=== PATIENT | male | born 1940 | race Hispanic/Latino ===

== ENCOUNTER 2016-12-22 11:03 | Emergency (ER) | payer MEDICARE ==
[2016-12-22 11:56] LABS: ALT (SGPT) 10 U/L (0-55); AST (SGOT) 10 U/L (5-34); Alkaline Phosphatase 72 U/L (40-150); Anion Gap 16 mmol/L (10-20); BUN (Urea Nitrogen) 23 mg/dL (8.4-25.7); Bilirubin, Total 0.5 mg/dL (0.2-1.2); Calc. Creatinine Clearance 0 mL/min (70-130); Calcium 9.2 mg/dL (7.8-10.44); Carbon Dioxide 21 mmol/L (23-31); Chloride 99 mmol/L (98-107); Estimated GFR-MDRD 45; Globulin 2.8 g/dL (2.4-3.5); Glucose 136 mg/dL (83-110); Lipase 16 U/L (8-78); Potassium 3.9 mmol/L (3.5-5.1); Protein, Total 6.8 g/dL (5.8-8.1); Sodium 132 mmol/L (136-145)
[2016-12-22 11:57] LABS: Troponin I 0.041 ng/mL (< 0.028)
[2016-12-22 12:42] LABS: Bilirubin Negative (Negative); Blood, Urine Trace (Negative); Clarity Clear (Clear); Glucose, Urine (Dipstick) Negative (Negative); Leukocyte Negative (Negative); Nitrite Negative (Negative); Protein, Urine (Dipstick) 100 mg/dL (Neg-Trace); Specific Gravity, Urine 1.025 (1.005-1.030); Urobilinogen 0.2 mg/dL (0.2-1.0)
[2016-12-22 12:49] LABS: Bacteria/HPF None Seen HPF (None Seen); Crystals/HPF None Seen HPF (Negative); Hyaline Casts/LPF NONE SEEN LPF (0-3 Hyaline); Oval Fat Bodies/HPF None Seen HPF (None Seen); RBC/HPF 0-3 HPF (0-3); Renal Epithelial None Seen HPF (0-3); Sperm/HPF None Seen HPF (None Seen); Squamous Epithelial None Seen HPF (0-3); Transitional Epithelial NONE SEEN HPF (0-3); Trichomonas/HPF None Seen HPF (None Seen); WBC/HPF None Seen HPF (0-3); Yeast-All Forms None Seen HPF (None Seen)
[2016-12-22] MEDS ORDERED: Lisinopril 5 MG TAB ONE (13:06)
[2016-12-22] MEDS ORDERED: Pantoprazole 40 MG VIAL ONE (13:11)
[2016-12-22 14:19] LABS: Troponin I 0.026 ng/mL (< 0.028)
--- NOTE | 2016-12-22 20:59 | RAD ---
CHEST TWO VIEWS 12/22/16 PA and lateral views are compared with a 01/12/14 study. The heart is normal in size. There is no con gestive change or pleural effusion. No major lobar infiltrate was seen. While the CT scan showed some bronchial thickening in the left l ower lobe, this is not confirmable on these plain radiographs. Attention is drawn to the right upper lobe. There is an extremely vague density seen where ribs are overlapping the right scapula. I cannot tell if the shadow is due to the overlap of bones, or if the re might be other pathology here. One might give consideration for an elective CT to remove all doub ts. The mediastinum was unremarkable. IMPRESSION: 1. No acute infiltrative process seen. See comments on CT of abdomen report, however. That repo rts notes a tiny left lower lobe nodule and bronchial thickening. 2. Equivocal density in the right upper lobe at the junction of the rib and scapula. It might b e best to consider an elective CT of the chest to be sure there is no pathology here. I do not see a nything in this location on the 01/12/14 comparison chest x-ray. Code T POS: HOME
--- NOTE | 2016-12-22 21:46 | CT ---
PRELIMINARY REPORT/[facility]/EMERGENCY AFTER HOURS PROCEDURE: EXAM: CT Abdomen and Pelvis Without Intravenous Contrast CLINICAL HISTORY: 76 years old, male; Pain; Abdominal pain; Periumbilical; Patient HX: HX right inguinal hernia SX TECHNIQUE: Axial computed tomography images of the abdomen and pelvis without intravenous contrast. Coronal reformatted images were created and reviewed. EXAM DATE/TIME: 12/22/2016 12:09 PM COMPARISON: No relevant prior studies available. FINDINGS: Lower thorax: There is an 8mm nodule in the posterior left costophrenic angle. There is a wall thick ening in the left lower lobe. ABDOMEN: Liver: Unremarkable. Gallbladder and bile ducts: The gallbladder is distended but otherwise unremarkable. No calcified st ones. No ductal dilation. Pancreas: Unremarkable. No ductal dilation. Spleen: Unremarkable. No splenomegaly. Adrenals: Unremarkable. No mass. Kidneys and ureters: Unremarkable. No obstructing stones. No hydronephrosis. Stomach and bowel: There is thickening of the wall of the distal stomach and proximal duodenum. There are a few mildly prominent loops of small intestine in the left flank. The intestine is otherw ise unremarkable. There is a 3 cm left lateral bladder diverticulum. The urinary bladder is otherwis e unremarkable. Appendix: The appendix is identified and normal in caliber. No periappendiceal inflammatory changes. PELVIS: Bladder: Unremarkable. No stones. Reproductive: Unremarkable as visualized. ABDOMEN and PELVIS: Intraperitoneal space: Unremarkable. No free air. No significant fluid collection. Bones/joints: No acute fracture. No dislocation. Soft tissues: Unremarkable. Vasculature: Unremarkable. No abdominal aortic aneurysm. Lymph nodes: Unremarkable. No enlarged lymph nodes. IMPRESSION: 1. Changes in the left lower lung as described. Bronchial wall thickening may represent acute or chr onic bronchitis. 2. Small nodule in the left costophrenic angle. In low-risk patients (minimal or absent history of s moking or other known risk factors), recommend initial CT at 6-12 months. If stable, repeat CT at 18 -24 months. For high-risk patients (history of smoking or other known risk factors), recommend initi al CT at 3-6 months. If stable, repeat CT at 9-12 months and at 24 months. 3. Mild nonspecific small bowel ileus. 4. No other acute changes in the abdomen or pelvis. Thank you for allowing us to participate in the care of your patient. Dictated and Authenticated by: Osvaldo Cardenas MD 12/22/2016 12:50 PM Central Time ([place] \T\ Michael) FINAL REPORT CT ABDOMEN AND PELVIS WITHOUT CONTRAST 12/22/[address] of the abdomen and pelvis was done without oral or IV contrast. The patient's renal functi on studies were borderline leading to the decision to not use IV contrast. Axial slices were acquire d, then coronal reconstructions were done. There is thickening of the bronchial benites in the lower lobes, but particularly the left lower lobe. There is slight dilation of the smaller bronchial passes in the area. Bronchitis and/or bronchiecta sis are considerations. There is a small nodular density in the left costophrenic angle posteriorly that is approximately 8 mm or so in size. It should be followed up in 6 to 12 months if this is a lo w risk patient and 3 to 6 months if a high risk patient. The liver, spleen, and adrenal glands were unremarkable within the limitations of a noncontrast stud y. The gallbladder is somewhat large and distended, being 9.5 cm in length. No wall thickening or st ones were seen. The pancreas contain no obvious mass. The main pancreatic duct seemed a little more prominent in size than usual (about 5 mm in diameter) but no gross obstructive lesion was seen to ac count for it. The kidneys showed no mass or hydronephrosis. The aorta showed no aneurysm. There was no distention of bowel, though some of the loops of small bowel in the left flank are flui d filled but not really thickened. This is a nonspecific finding. There was a small amount of thicke aaron of the distal stomach and proximal duodenum that could be inflammatory in nature. The appendix appears normal. CT of the pelvis shows a 3 cm diverticulum off the left side of the urinary bladder. No pelvic ahsan s, inflammatory changes or free fluid was seen. IMPRESSION: 1. Findings suggestive of bronchitis and/or bronchiectasis in the lower lobes, particularly the left lower lobe. 2. Small nodular density in the left costophrenic angle. CT followup recommended per above. 3. Enlargement of the gallbladder. Borderline size of pancreatic duct. If there is suspicion of gallbladder disease, then a HIDA scan could be useful in assessing function. 4. Nonspecific small bowel findings. Report in agreement with preliminary reading by Sesar. POS: HOME
== END 2016-12-22 14:53 | disposition home or self-care (01) ==
LOC: BURERS 11:03
DX: K29.00 Acute gastritis without bleeding (principal); I10 Essential (primary) hypertension; F17.210 Nicotine dependence, cigarettes, uncomplicated; Z79.899 Other long term (current) drug therapy
CPT/HCPCS: 71020; 74176; 80053; 81003; 81015; 82553; 83690; 84484; 93005; 96360; 96374; C9113

== ENCOUNTER 2017-04-21 10:03 | Emergency (ER) | payer MEDICARE ==
[~2017-04-21 10:03] MED LIST: Iopamidol 370 76% 100 ML VIAL ONE
[2017-04-21 10:37] LABS: #Basophils 0.1 thou/uL (0.0-0.2); #Eosinphils 0.1 thou/uL (0.0-0.7); #Lymphocytes 1.4 thou/uL (1.20-3.40); #Monocytes 0.4 thou/uL (0.11-0.59); #Neutrophils 6.2 thou/uL (1.40-6.50); %Basophils 0.7 % (0.0-1.0); %Eosinophils 1.2 % (0.0-10.0); %Monocytes 4.7 % (0.0-10.0); %Neutrophils 76.4 % (42.0-75.0); Hemoglobin 14.7 g/dL (14.0-18.0); Mean Corpuscular Volume 94.1 fl (80.0-94.0); Mean Platelet Volume 8.2 fL (7.4-10.4); Platelet Count 181 thou/uL (130-400); RBC Distribution Width 12.5 % (11.5-14.5); White Blood Cell (WBC) Count 8.1 thou/uL (4.8-10.8)
[2017-04-21 10:43] LABS: INR-International Normal Ratio 1.1; PTT 31.5 SEC (22.9-36.1); Prothrombin Time 13.9 SEC (12.0-14.7)
[2017-04-21 10:53] LABS: ALT (SGPT) 12 U/L (8-55); AST (SGOT) 12 U/L (5-34); Albumin 4.1 g/dL (3.4-4.8); Alkaline Phosphatase 73 U/L (40-150); Anion Gap 13 mmol/L (10-20); BUN (Urea Nitrogen) 21 mg/dL (8.4-25.7); Bilirubin, Total 0.5 mg/dL (0.2-1.2); Calc. Creatinine Clearance 0 mL/min (70-130); Calcium 9.4 mg/dL (7.8-10.44); Carbon Dioxide 23 mmol/L (23-31); Chloride 106 mmol/L (98-107); Estimated GFR-MDRD 46; Globulin 2.5 g/dL (2.4-3.5); Glucose 109 mg/dL (83-110); Potassium 4.5 mmol/L (3.5-5.1); Protein, Total 6.6 g/dL (5.8-8.1); Sodium 137 mmol/L (136-145)
[2017-04-21 10:55] LABS: CKMB 0.9 ng/mL (0-6.6); Troponin I 0.043 ng/mL (< 0.028)
[2017-04-21 12:58] LABS: Troponin I 0.045 ng/mL (< 0.028)
--- NOTE | 2017-04-21 20:57 | RAD ---
CHEST TWO VIEWS: Date: 04-21-17 Comparison: 12-22-16 FINDINGS: There has been no adverse interval change. The heart size is the same. Calcification is seen in the aortic arch. The lungs are fully inflated and clear. Previously there was a question of a faint righ t upper lobe opacity, but I do not see it today. There are no effusions. IMPRESSION: No acute thoracic finding. POS: HOME
--- NOTE | 2017-04-22 05:55 | CT ---
PRELIMINARY REPORT/[facility]/EMERGENCY AFTER HOURS PROCEDURE: EXAM: CT Abdomen and Pelvis With Intravenous Contrast CLINICAL HISTORY: The patient is 76 years old and is male; generalized abdominal pain with black stool TECHNIQUE: Axial computed tomography images of the abdomen and pelvis with intravenous contrast. All CT scans a t this facility use one or more dose reduction techniques, viz.: automated exposure control; ma/kV a djustment per patient size (including targeted exams where dose is matched to indication; i.e. head) ; or iterative reconstruction technique. CONTRAST: 90 mL of iso 370 administered intravenously. COMPARISON: No relevant prior studies available. FINDINGS: Lower thorax: NORMAL. No infiltrates or nodules. No pleural effusion. ABDOMEN: Liver: 12 mm hepatic hemangioma. No neoplasm or cirrhosis. Gallbladder and bile ducts: NORMAL. No stones. No dilated or irregular ducts. Pancreas: NORMAL. No pancreatic mass or inflammation, or duct dilatation. Spleen: NORMAL. No splenomegaly. Normal parenchyma. Adrenals: NORMAL. No adrenal nodule or enlargement. Kidneys and ureters: NORMAL. No renal mass, stone or obstruction. Stomach and bowel: Normal stomach and duodenum. Thickening of the wall of the jejunum beginning at t he ligament of Treitz, which gradually dissipates distally, persisting for a few turns. Nonspecific appearance. Differential of inflammation, ischemia and neoplasm. Appendix: NORMAL. No signs of inflammation. PELVIS: Bladder: NORMAL. No bladder wall thickening or stone. Reproductive: NORMAL prostate and seminal vesicles for age. ABDOMEN and PELVIS: Intraperitoneal space: NORMAL. No free air or significant fluid collection. Retroperitoneal space: NORMAL. No mass, abnormal tissue or fluid. Bones/joints: See above. Soft tissues: NORMAL. Vasculature: NORMAL. No aneurysm, dissection or occlusion. Lymph nodes: NORMAL. No enlarged lymph nodes. IMPRESSION: Thickened proximal jejunal benites with a nonspecific appearance. Thank you for allowing us to participate in the care of your patient. Dictated and Authenticated by: Lopez Morrissey MD 04/21/2017 11:57 AM Central Time ([place] \T\ [place]) FINAL REPORT CT ABDOMEN AND PELVIS WITH CONTRAST: Date: 04-21-17 Technique: Spiral CT of the abdomen and pelvis was done for evaluation of abdominal pain and melena. Axial slices were acquired after an injection of IV contrast. No oral contrast was given. Coronal r econstructions were done afterwards. FINDINGS: There is some thickening of folds in the stomach and the proximal small bowel. The proximal small nelida wel loops are mildly dilated and fluid filled. The findings are nonspecific but more typical of an i nflammatory or infectious process. There is no evidence of overt obstruction. The colonic benites do n ot see thickened. No free air or free fluid was seen. The lung bases are clear except for some dependent atelectasis. The liver, spleen, pancreas, adrenal glands and kidneys showed no acute findings. The gallbladder was a little generous in size but cont ain no signs of stones or wall thickening. The aorta shows calcification but no aneurysm. CT of the pelvis was remarkable for an enlarged prostate. Additionally, there may be a bladder diver ticulum on the left side. IMPRESSION: 1. Nonspecific findings in the stomach through proximal small bowel that would be typical of infecti ous or inflammatory causes. No evidence of pham obstruction. 2. Possible left sided bladder diverticulum. Report in agreement with preliminary report by [facility]. POS: HOME
== END 2017-04-21 13:10 | disposition home or self-care (01) ==
LOC: BURERS 10:03
DX: R53.1 Weakness (principal); I10 Essential (primary) hypertension; F17.210 Nicotine dependence, cigarettes, uncomplicated; Z79.899 Other long term (current) drug therapy
CPT/HCPCS: 36415; 71020; 74177; 80053; 82274; 82553; 83605; 83690; 84443; 84484; 85025; 85610; 85730; 93005; 96360; A4216

== ENCOUNTER → 2017-06-18 | Emergency (ER) | payer MEDICARE ==
[~2017-06-18] MED LIST changes: -Iopamidol 370 76% 100 ML VIAL ONE; +Nitroglycerin 0.4 MG TAB (25 Tab Bottle) ONE; +Nitroglycerin 2% Ointment 1 INCH/1 GM Packet ONE; +methylPREDNISolone Sod Succ/PF 125 MG/2 ML VIAL ONE
[2017-06-18 02:59] LABS: INR-International Normal Ratio 1.2; Prothrombin Time 14.9 SEC (12.0-14.7)
[2017-06-18 03:09] LABS: ALT (SGPT) 18 U/L (8-55); AST (SGOT) 9 U/L (5-34); Albumin 3.7 g/dL (3.4-4.8); Alkaline Phosphatase 90 U/L (40-150); Anion Gap 17 mmol/L (10-20); BUN (Urea Nitrogen) 61 mg/dL (8.4-25.7); Bilirubin, Total 0.5 mg/dL (0.2-1.2); CK (CPK) 56 U/L (30-200); Calc. Creatinine Clearance 0 mL/min (70-130); Calcium 8.4 mg/dL (7.8-10.44); Carbon Dioxide 16 mmol/L (23-31); Chloride 108 mmol/L (98-107); Estimated GFR-MDRD 8; Globulin 2.7 g/dL (2.4-3.5); Glucose 151 mg/dL (83-110); Lipase 137 U/L (8-78); Potassium 4.9 mmol/L (3.5-5.1); Protein, Total 6.4 g/dL (5.8-8.1); Sodium 136 mmol/L (136-145)
[2017-06-18 03:10] LABS: CKMB 1.2 ng/mL (0-6.6)
[2017-06-18 03:11] LABS: #Basophils 0.1 thou/uL (0.0-0.2); #Eosinphils 1.7 thou/uL (0.0-0.7); #Lymphocytes 1.2 thou/uL (1.20-3.40); #Monocytes 0.6 thou/uL (0.11-0.59); #Neutrophils 7.2 thou/uL (1.40-6.50); %Basophils 0.6 % (0.0-1.0); %Eosinophils 15.8 % (0.0-10.0); %Lymphocytes 11.4 % (21.0-51.0); %Monocytes 5.4 % (0.0-10.0); %Neutrophils 66.8 % (42.0-75.0); Mean Corpuscular HGB CONC 34.2 g/dL (32.0-36.0); Mean Corpuscular Hemoglobin 31.6 pg (27.0-31.0); Mean Corpuscular Volume 92.3 fl (80.0-94.0); Mean Platelet Volume 7.4 fL (7.4-10.4); Platelet Count 153 thou/uL (130-400); RBC Distribution Width 12.5 % (11.5-14.5); Red Blood Cell (RBC) Count 3.16 mill/uL (4.70-6.10); White Blood Cell (WBC) Count 10.7 thou/uL (4.8-10.8)
[2017-06-18 03:25] LABS: D-Dimer Test 1.29 *mcg/mL (0.27-0.43)
--- NOTE | 2017-06-18 07:36 | RAD ---
PORTABLE CHEST: DATE: 06/18/17. FINDINGS: An AP portable film at 1433 is compared with an 04/21/17 study. In the interval, pulmonary edema and slight vascular congestion has occurred. The cardiac size may be marginally larger than before. Th ere are no large effusions. No lobar consolidations were seen. IMPRESSION: Interval appearance of pulmonary edema, presumably of a cardiac origin given the presentation with c hest pain. POS: HOME
== END ==
LOC: BURERS 02:29
DX: J98.01 Acute bronchospasm (principal); R07.2 Precordial pain; K29.60 Other gastritis without bleeding; A04.8 Other specified bacterial intestinal infections; N17.9 Acute kidney failure, unspecified; R79.89 Other specified abnormal findings of blood chemistry
CPT/HCPCS: 51702; 71010; 80053; 82550; 82553; 83690; 83880; 84484; 85025; 85379; 85610; 85730; 93005; 94640; 94760; 96361; 96374; J2930; J7620

== ENCOUNTER 2017-08-09 18:02 | Emergency (ER) | payer MEDICARE ==
[2017-08-09] MEDS ORDERED: Fentanyl 100 MCG/2 ML VIAL ONE (18:25)
[2017-08-09 18:59] LABS: ALT (SGPT) 8 U/L (8-55); AST (SGOT) 8 U/L (5-34); Alkaline Phosphatase 74 U/L (40-150); Anion Gap 17 mmol/L (10-20); BUN (Urea Nitrogen) 34 mg/dL (8.4-25.7); Bilirubin, Total 0.5 mg/dL (0.2-1.2); Calc. Creatinine Clearance 0 mL/min (70-130); Calcium 9.8 mg/dL (7.8-10.44); Carbon Dioxide 23 mmol/L (23-31); Chloride 101 mmol/L (98-107); Estimated GFR-MDRD 22; Globulin 3.2 g/dL (2.4-3.5); Glucose 132 mg/dL (83-110); Lipase 15 U/L (8-78); Potassium 4.6 mmol/L (3.5-5.1); Protein, Total 7.2 g/dL (5.8-8.1); Sodium 136 mmol/L (136-145)
[2017-08-09 19:00] LABS: Hemoglobin 9.1 g/dL (14.0-18.0); Lymphocytes 8 % (21-51); MDiff Complete? YES; Mean Corpuscular HGB CONC 31.8 g/dL (32.0-36.0); Mean Corpuscular Hemoglobin 29.6 pg (27.0-31.0); Mean Corpuscular Volume 93.2 fl (80.0-94.0); Monocytes 6 % (0-10); Neutrophil 84 % (42-75); Platelet Count 210 thou/uL (130-400); RBC Distribution Width 12.8 % (11.5-14.5); Reactive Lymphocytes 1 % (0-10); Red Blood Cell (RBC) Count 3.07 mill/uL (4.70-6.10); White Blood Cell (WBC) Count 11.6 thou/uL (4.8-10.8)
--- NOTE | 2017-08-09 19:25 | CT ---
CT ABDOMEN AND PELVIS NONCONTRAST 08/09/17 HISTORY: Bilateral flank pain. COMPARISON: 04/21/17. FINDINGS: Each renal collecting system and ureter are decompressed without stone evident. The diverticulum proj ecting to the left side of the urinary bladder now measures up to 4.3 cm greatest AP diameter. No sto tobias are apparent. Lack of contrast limits evaluation for other abnormalities. Small hiatal hernia is apparent. No evide nce of bowel obstruction. Dystrophic calcification within the mid abdomen amongst the bowel loops is stable. There is calcification in the arterial structures. The rectum is dilated with fecal material up to 7.8 cm greatest diameter. For the degree of distentio n, there is some thickening of the rectal wall and subtle stranding in the adjacent fat. IMPRESSION: 1. No CT evidence of urinary tract obstruction or calcification. 2. Fecal impaction with thickening of the rectal wall. Clinical correlation regarding other sign s and symptoms of stercoral proctitis is required. POS: GANGA
[2017-08-09] MEDS ORDERED: Magnesium Citrate 300 ML BOT ONE (19:49)
== END 2017-08-09 20:30 | disposition home or self-care (01) ==
LOC: BURERS 18:02
DX: K59.00 Constipation, unspecified (principal); I10 Essential (primary) hypertension; F17.210 Nicotine dependence, cigarettes, uncomplicated; Z79.899 Other long term (current) drug therapy; Z79.82 Long term (current) use of aspirin
CPT/HCPCS: 74176; 80053; 83690; 85025; 96374; J3010

== ENCOUNTER 2018-02-05 08:36 | Outpatient (CLI) | payer MEDICARE ==
--- NOTE | 2018-02-05 17:21 | ULT ---
LEFT BREAST ULTRASOUND: 02/05/2018 TECHNIQUE: Ultrasonography of the left breast was performed around an area of interest in the areolar region. A few comparison views of the right side, in the same area, were obtained as well. FINDINGS: There is an ill-defined, hypoechoic area in the left retroareolar region, measuring 1.7 x 1 x 1.8 cm. Its margins are not well defined. While it could just be some hypertrophied tissue from gynecomast ia, the current appearance does not allow me to ensure it is not a mass. Because of this, I feel fur ther workup to be certain is needed. The comparison views of this same region of the right breast sh ow no abnormality and nothing similar. IMPRESSION: A 1.8 cm, irregular, hypoechoic area in the left retroareolar region with indeterminate margins. See discussion above. While this could end up being some benign hypertrophied tissue, I do not feel the ultrasound appearance is specific enough to ensure that. Thus, I feel further workup of this lesion would be prudent and in the patient's best interest. CODE T POS: GANGA
== END 2018-02-05 08:37 | disposition home or self-care (01) ==
LOC: BURULT 08:36
PROVIDERS: ATTEND Family Medicine
DX: N63.20 Unspecified lump in the left breast, unspecified quadrant (principal)

== ENCOUNTER 2018-07-19 10:44 | Outpatient (CLI) | payer MEDICARE ==
[2018-07-19 16:21] LABS: Hemoglobin 12.5 g/dL (14.0-18.0)
[2018-07-19 16:35] LABS: Anion Gap 11 mmol/L (10-20); BUN (Urea Nitrogen) 23 mg/dL (8.4-25.7); Calc. Creatinine Clearance 0 mL/min (70-130); Calcium 9.3 mg/dL (7.8-10.44); Carbon Dioxide 27 mmol/L (23-31); Chloride 106 mmol/L (98-107); Estimated GFR-MDRD 27; Glucose 90 mg/dL (83-110); Potassium 3.7 mmol/L (3.5-5.1); Sodium 140 mmol/L (136-145)
== END 2018-07-19 10:45 | disposition home or self-care (01) ==
LOC: BURLAB 10:44
PROVIDERS: ATTEND Internal Medicine Nephrology
DX: I13.10 Hypertensive heart and chronic kidney disease without heart failure, with stage 1 through stage 4 chronic kidney disease, or unspecified chronic kidney disease (principal); N18.4 Chronic kidney disease, stage 4 (severe); E55.9 Vitamin D deficiency, unspecified; E87.2 Acidosis; R60.0 Localized edema
CPT/HCPCS: 36415; 80048; 85014; 85018

== ENCOUNTER 2019-08-23 08:15 | Emergency (ER) | payer MEDICARE ==
[2019-08-23 08:40] LABS: #Eosinphils 0.1 thou/uL (0.0-0.7); #Lymphocytes 0.7 thou/uL (1.20-3.40); #Monocytes 0.1 thou/uL (0.11-0.59); %Basophils 0.4 % (0.0-1.0); %Lymphocytes 10.6 % (21.0-51.0); %Monocytes 1.4 % (0.0-10.0); %Neutrophils 86.5 % (42.0-75.0); Hemoglobin 15.3 g/dL (14.0-18.0); Mean Corpuscular Hemoglobin 29.4 pg (27.0-31.0); Mean Corpuscular Volume 94.8 fL (78.0-98.0); Mean Platelet Volume 6.3 fL (7.4-10.4); Platelet Count 224 thou/uL (130-400); RBC Distribution Width 13.6 % (11.5-14.5); Red Blood Cell (RBC) Count 5.22 mill/uL (4.70-6.10); White Blood Cell (WBC) Count 6.9 thou/uL (4.8-10.8)
[2019-08-23 08:57] LABS: ALT (SGPT) 10 U/L (8-55); AST (SGOT) 10 U/L (5-34); Albumin 4.7 g/dL (3.4-4.8); Alkaline Phosphatase 67 U/L (40-110); Anion Gap 18 mmol/L (10-20); BUN (Urea Nitrogen) 18 mg/dL (8.4-25.7); Bilirubin, Total 0.7 mg/dL (0.2-1.2); Calc. Creatinine Clearance 0 mL/min (70-130); Calcium 9.8 mg/dL (7.8-10.44); Carbon Dioxide 24 mmol/L (23-31); Chloride 104 mmol/L (98-107); Estimated GFR-MDRD 30; Globulin 2.9 g/dL (2.4-3.5); Glucose 148 mg/dL (83-110); Potassium 3.8 mmol/L (3.5-5.1); Protein, Total 7.6 g/dL (5.8-8.1); Sodium 142 mmol/L (136-145)
[2019-08-23 09:14] LABS: CKMB 1.1 ng/mL (0-6.6)
--- NOTE | 2019-08-23 10:10 | CT ---
CT Chest WO Con HISTORY: Dyspnea. COMPARISON: 02/27/2019 CT examination. FINDINGS: There are pneumonic appearing infiltrates in the right upper lobe predominantly involving t he posterior segment and right lower lobe pneumonic infiltrate. The left lung is clear. No significant mediastinal adenopathy appreciated on this noncontrast study. There are some moderate coronary calcification seen. 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 It appears stable as compared to the previous exam. Visualized liver parenchyma is normal. Right and left adrenal glands are normal. IMPRESSION: Right upper and lower lobe pneumonic infiltrates.
[2019-08-23] MEDS ORDERED: Cefepime 1 GM VIAL ONE (10:36)
[2019-08-23] MEDS ORDERED: Sodium Chloride 0.9% 100 ML ONE (10:37)
[2019-08-23] MEDS ORDERED: Sodium Bicarb 50 MEQ/50 ML Abboject 8.4% SYRINGE ONE (10:55)
--- NOTE | 2019-08-23 12:13 | RAD ---
PORTABLE CHEST: Date: 08/23/19 An AP portable film at 0833 hours shows a dense consolidation mainly in the right lower lobe. There i s probably some infiltrate in the right upper lobe as well. The left lung is clear. The heart is uppe r normal in size, but there is no congestive change or pleural effusion. IMPRESSION: Right-sided pneumonia. POS: HOME
== END 2019-08-23 11:10 | disposition short-term general hospital (02) ==
LOC: BURERS 08:15
DX: J18.9 Pneumonia, unspecified organism (principal); I10 Essential (primary) hypertension; F17.210 Nicotine dependence, cigarettes, uncomplicated; Z79.899 Other long term (current) drug therapy; Z79.82 Long term (current) use of aspirin
CPT/HCPCS: 36415; 71045; 71250; 80053; 82553; 83605; 83880; 84484; 85025; 85379; 87040; 93005; 94640; 94760; 96365; 96375; J0692; J3370; J3490; J7620

== ENCOUNTER 2019-09-01 17:30 | Emergency (ER) | payer MEDICARE ==
[2019-09-01 17:57] LABS: #Eosinphils 0.3 thou/uL (0.0-0.7); #Lymphocytes 0.9 thou/uL (1.20-3.40); #Monocytes 0.4 thou/uL (0.11-0.59); #Neutrophils 6.7 thou/uL (1.40-6.50); %Basophils 0.5 % (0.0-1.0); %Eosinophils 3.5 % (0.0-10.0); %Monocytes 4.4 % (0.0-10.0); %Neutrophils 80.6 % (42.0-75.0); Hemoglobin 13.6 g/dL (14.0-18.0); Mean Corpuscular HGB CONC 32.1 g/dL (32.0-36.0); Mean Corpuscular Hemoglobin 29.5 pg (27.0-31.0); Mean Platelet Volume 6.2 fL (7.4-10.4); Platelet Count 256 thou/uL (130-400); RBC Distribution Width 13.5 % (11.5-14.5); Red Blood Cell (RBC) Count 4.59 mill/uL (4.70-6.10); White Blood Cell (WBC) Count 8.4 thou/uL (4.8-10.8)
[2019-09-01 18:05] LABS: Base Excess-Venous -0.3 mmol/L (-2.0 to 3.0); Bicarbonate (HCO3v) 24.5 mmol/L (22.0-28.0); CO2 Tension (PvCO2) 39.7 mmHg (40.0-50.0); Calcium, Ionized 1.18 mmol/L (See Comments:); Chloride 102 mmol/L (98-107); Hemoglobin - Calc 14.9 g/dL (14.0-18.0); Potassium 3.6 mmol/L (3.5-5.1); Sodium 138 mmol/L (138-145); T. Carbon Dioxide 25.7 mmol/L (22.0-28.0); vO2 Saturation-calc 88.6 % (60.0-85.0)
[2019-09-01 18:06] LABS: ALT (SGPT) 10 U/L (8-55); AST (SGOT) 9 U/L (5-34); Albumin 4.4 g/dL (3.4-4.8); Alkaline Phosphatase 63 U/L (40-110); Anion Gap 15 mmol/L (10-20); BUN (Urea Nitrogen) 19 mg/dL (8.4-25.7); Bilirubin, Total 0.8 mg/dL (0.2-1.2); Calc. Creatinine Clearance 0 mL/min (70-130); Calcium 9.7 mg/dL (7.8-10.44); Carbon Dioxide 23 mmol/L (23-31); Chloride 105 mmol/L (98-107); Estimated GFR-MDRD 30; Globulin 2.9 g/dL (2.4-3.5); Glucose 109 mg/dL (83-110); Potassium 3.8 mmol/L (3.5-5.1); Protein, Total 7.3 g/dL (5.8-8.1); Sodium 139 mmol/L (136-145)
--- NOTE | 2019-09-01 18:23 | RAD ---
PORTABLE CHEST ONE VIEW: 09/01/19 at 5:44 p.m. HISTORY: Dyspnea. FINDINGS: Comparison made with exam of 08/23/19. The heart size is normal. The lungs are expanded without focal areas of consolidation, pneumothoraces , or pleural effusions. The consolidation in the right lower lung has resolved in the interim. IMPRESSION: No radiographic evidence of acute cardiopulmonary process. Interval resolution of right sided pneumon ia since 08/23/19. POS: JERRELLA
[2019-09-01] MEDS ORDERED: methylPREDNISolone Sod Succ/PF 125 MG/2 ML VIAL ONE (18:28)
== END 2019-09-01 19:14 | disposition home or self-care (01) ==
LOC: BURERS 17:30
DX: J44.1 Chronic obstructive pulmonary disease with (acute) exacerbation (principal); E78.5 Hyperlipidemia, unspecified; I11.0 Hypertensive heart disease with heart failure; I50.9 Heart failure, unspecified; F17.210 Nicotine dependence, cigarettes, uncomplicated
CPT/HCPCS: 71045; 80053; 82330; 82803; 83880; 84484; 85025; 87804; 93005; 96374; J2930; J7620

== ENCOUNTER 2020-05-07 11:35 | Outpatient (CLI) | payer MEDICARE ==
--- NOTE | 2020-05-09 07:15 | CT ---
CT THORAX NONCONTRAST: DATE: 05/07/2020 HISTORY: 79-year-old male follow-up pulmonary nodules COMPARISON: 02/27/2019 FINDINGS: A few tiny less than 3 mm pulmonary micronodules mentioned on prior report. By Fleischner's criteria, these do not require follow-up. There are no suspicious pulmonary nodules. The right-sided infiltrates of 08/23/2019 have resolved. Currently, there is a small focal pulmonary scar at the poste rior base of the right lower lobe, probably sequela from that larger infiltrate. Otherwise, lungs are clear. No pleural effusion or pneumothorax. Fluid-filled dilated esophagus is again noted. Moderate hiatal hernia again noted. No cardiomegaly or pericardial effusion. The previously described 2 cm saccular aneurysm protruding from posterior surface of the descending t horacic aorta is again noted. Calcification of coronary arteries. IMPRESSION: 1) no suspicious pulmonary nodules. 2) right lower lobe focal pulmonary scar represents sequela of the right lower lobe pneumonia that wa s demonstrated on 08/23/2019. 3) moderate size hiatal hernia 4) fluid-filled diffusely dilated esophagus. 5) saccular aneurysm of descending thoracic aorta.
== END 2020-05-07 11:36 | disposition home or self-care (01) ==
LOC: BURCT 11:35
PROVIDERS: ATTEND Family Medicine
DX: R91.1 Solitary pulmonary nodule (principal); K44.9 Diaphragmatic hernia without obstruction or gangrene; J98.4 Other disorders of lung; I71.2 Thoracic aortic aneurysm, without rupture
CPT/HCPCS: 71250

== ENCOUNTER 2021-07-03 11:59 | Outpatient (CLI) | payer MEDICARE ==
[2021-07-03 12:16] LABS: Hemoglobin 13.3 g/dL (14.0-18.0); Mean Corpuscular HGB CONC 32.7 g/dL (32.0-36.0); Mean Corpuscular Hemoglobin 31.4 pg (27.0-31.0); Mean Platelet Volume 6.7 fL (7.4-10.4); Platelet Count 219 thou/uL (130-400); RBC Distribution Width 13.2 % (11.5-14.5); Red Blood Cell (RBC) Count 4.23 mill/uL (4.70-6.10); White Blood Cell (WBC) Count 6.1 thou/uL (4.8-10.8)
[2021-07-03 12:57] LABS: Albumin 3.8 g/dL (3.4-4.8); Anion Gap 14 mmol/L (10-20); BUN (Urea Nitrogen) 22 mg/dL (8.4-25.7); Calc. Creatinine Clearance 0 mL/min (70-130); Calcium 9.5 mg/dL (7.8-10.44); Carbon Dioxide 24 mmol/L (23-31); Chloride 107 mmol/L (98-107); Glucose 104 mg/dL (83-110); Magnesium 2.1 mg/dL (1.6-2.6); Potassium 3.7 mmol/L (3.5-5.1); Sodium 141 mmol/L (136-145)
[2021-07-03 18:45] LABS: Phosphorus 2.9 mg/dL (2.3-4.7)
== END 2021-07-03 12:00 | disposition home or self-care (01) ==
LOC: BURLAB 11:59
PROVIDERS: ATTEND Internal Medicine Nephrology
DX: I13.10 Hypertensive heart and chronic kidney disease without heart failure, with stage 1 through stage 4 chronic kidney disease, or unspecified chronic kidney disease (principal); N18.4 Chronic kidney disease, stage 4 (severe); R60.9 Edema, unspecified
CPT/HCPCS: 36415; 80048; 82040; 83735; 83970; 84100; 85027

== ENCOUNTER 2021-11-04 14:43 | Outpatient (CLI) | payer MEDICARE ==
[2021-11-04 15:12] LABS: #Eosinphils 0.3 thou/uL (0.0-0.7); #Lymphocytes 0.9 thou/uL (1.20-3.40); #Monocytes 0.4 thou/uL (0.11-0.59); #Neutrophils 2.9 thou/uL (1.40-6.50); %Basophils 1.1 % (0.0-1.0); %Eosinophils 6.1 % (0.0-10.0); %Lymphocytes 20.1 % (21.0-51.0); %Monocytes 7.7 % (0.0-10.0); Hemoglobin 12.3 g/dL (14.0-18.0); Mean Corpuscular HGB CONC 32.9 g/dL (32.0-36.0); Mean Platelet Volume 6.4 fL (7.4-10.4); Platelet Count 206 thou/uL (130-400); RBC Distribution Width 12.9 % (11.5-14.5); Red Blood Cell (RBC) Count 3.97 mill/uL (4.70-6.10); White Blood Cell (WBC) Count 4.5 thou/uL (4.8-10.8)
[2021-11-04 15:41] LABS: Anion Gap 14 mmol/L (10-20); BUN (Urea Nitrogen) 20 mg/dL (8.4-25.7); Calc. Creatinine Clearance 0 mL/min (70-130); Calcium 8.6 mg/dL (7.8-10.44); Carbon Dioxide 24 mmol/L (23-31); Chloride 108 mmol/L (98-107); Glucose 92 mg/dL (83-110); Potassium 3.8 mmol/L (3.5-5.1); Sodium 142 mmol/L (136-145)
[2021-11-05 16:10] LABS: Creatinine, Urine 91.79 mg/dL (63-166)
== END 2021-11-04 14:44 | disposition home or self-care (01) ==
LOC: BURLAB 14:43
PROVIDERS: ATTEND Internal Medicine Nephrology
DX: I13.10 Hypertensive heart and chronic kidney disease without heart failure, with stage 1 through stage 4 chronic kidney disease, or unspecified chronic kidney disease (principal); E87.6 Hypokalemia; R60.9 Edema, unspecified; N18.4 Chronic kidney disease, stage 4 (severe)
CPT/HCPCS: 36415; 80048; 82570; 84156; 85025

== ENCOUNTER 2022-12-08 10:55 | Inpatient (IN) | payer MEDICARE ==
[2022-12-08] MEDS ORDERED: methylPREDNISolone Sod Succ/PF 125 MG/2 ML VIAL ONE (11:06)
[2022-12-08] MEDS ORDERED: Ipratropium/Albuterol 3 ML NEB ONE (11:10)
[2022-12-08] MEDS ORDERED: Cefepime 2 GM VIAL ONE (11:24)
[2022-12-08] MEDS ORDERED: Sodium Chloride 0.9% 100 ML ONE ×2 (11:24→11:25)
[2022-12-08 11:27] LABS: #Eosinphils 0.1 thou/uL (0.0-0.7); #Lymphocytes 0.7 thou/uL (1.20-3.40); #Monocytes 0.1 thou/uL (0.11-0.59); #Neutrophils 3.9 thou/uL (1.40-6.50); %Basophils 0.4 % (0.0-1.0); %Eosinophils 2.3 % (0.0-10.0); %Lymphocytes 15.5 % (21.0-51.0); %Monocytes 1.3 % (0.0-10.0); %Neutrophils 80.5 % (42.0-75.0); Hemoglobin 15.7 g/dL (14.0-18.0); Mean Corpuscular HGB CONC 32.3 g/dL (32.0-36.0); Mean Corpuscular Hemoglobin 31.4 pg (27.0-31.0); Mean Corpuscular Volume 97.3 fl (78.0-98.0); Mean Platelet Volume 6.7 fL (7.4-10.4); Platelet Count 194 10x3/uL (130-400); RBC Distribution Width 12.9 % (11.5-14.5); Red Blood Cell (RBC) Count 4.98 mill/uL (4.70-6.10); White Blood Cell (WBC) Count 4.8 10x3/uL (4.8-10.8)
[2022-12-08 11:32] LABS: ALT (SGPT) 16 U/L (8-55); AST (SGOT) 10 U/L (5-34); Albumin 4.1 g/dL (3.4-4.8); Alkaline Phosphatase 51 U/L (40-110); Anion Gap 15 mmol/L (10-20); BUN (Urea Nitrogen) 23 mg/dL (8.4-25.7); Calc. Creatinine Clearance 0 mL/min (70-130); Calcium 9.4 mg/dL (7.8-10.44); Carbon Dioxide 22 mmol/L (23-31); Chloride 107 mmol/L (98-107); Estimated GFR 30; Globulin 2.9 g/dL (2.4-3.5); Glucose 157 mg/dL (83-110); Potassium 4.2 mmol/L (3.5-5.1); Sodium 140 mmol/L (136-145)
[2022-12-08 11:34] LABS: CK (CPK) 44 U/L (30-200); CRP (Inflammatory) Less than 0.50 mg/dL (= or < 0.5); Magnesium 1.8 mg/dL (1.6-2.6)
[2022-12-08 12:07] LABS: SARS-CoV-2 NAA Rapid Test Not Detected (NotDetected)
[2022-12-08] MEDS ORDERED: Acetaminophen 325 MG TAB PO PRN (14:00)
[2022-12-08] MEDS ORDERED: Ondansetron ODT 4 MG TAB SL PRN (14:00)
[2022-12-08] MEDS ORDERED: Ondansetron PF 4 MG/2 ML Vial IVP PRN (14:00)
[2022-12-08 14:06] VITALS: BMI 23.6
[2022-12-08] MEDS ORDERED: FLU VACC QS2022-23(65YR UP)/PF 240 MCG/0.7 ML SYRINGE IM ONE (14:45)
[2022-12-08 15:29] LABS: Lactic Acid 1.6 mmol/L (0.5-2.2)
[2022-12-08] MEDS ORDERED: hydrALAZINE 25 MG TAB PO SCH (22:00)
[2022-12-08] MEDS ORDERED: Atorvastatin Calcium 10 MG TAB PO SCH (22:00)
[2022-12-08] MEDS ORDERED: Carvedilol 6.25 MG TAB PO SCH (22:00)
[2022-12-09] MEDS ORDERED: Bisacodyl 5 MG TAB PO PRN (08:29)
[2022-12-09] MEDS ORDERED: Bisacodyl 10 MG SUPP PR PRN (08:29)
[2022-12-09] MEDS ORDERED: Cholecalciferol 1,000 UNITS (25 MCG) TAB PO SCH (09:00)
[2022-12-09] MEDS ORDERED: hydrALAZINE 25 MG TAB PO SCH (09:00)
[2022-12-09] MEDS ORDERED: Carvedilol 6.25 MG TAB PO SCH (09:00)
[2022-12-09] MEDS: Aspirin Chewable 81 MG TAB PO SCH (09:04)
[2022-12-09] MEDS: Carvedilol 6.25 MG TAB PO SCH ×2 (09:05→20:48)
[2022-12-09] MEDS: hydrALAZINE 25 MG TAB PO SCH ×3 (09:05→20:40)
[2022-12-09] MEDS: Ipratropium/Albuterol 3 ML NEB NEB SCH ×2 (13:14→18:10)
[2022-12-09] MEDS ORDERED: Atorvastatin Calcium 10 MG TAB PO SCH ×2 (21:00)
[2022-12-10] MEDS: Ipratropium/Albuterol 3 ML NEB NEB SCH ×3 (02:14→12:40)
[2022-12-10 05:51] LABS: #Lymphocytes 0.8 thou/uL (1.20-3.40); #Monocytes 0.4 thou/uL (0.11-0.59); #Neutrophils 8.1 thou/uL (1.40-6.50); %Basophils 0.2 % (0.0-1.0); %Eosinophils 0.1 % (0.0-10.0); %Monocytes 4.5 % (0.0-10.0); %Neutrophils 87.1 % (42.0-75.0); ALT (SGPT) 18 U/L (8-55); AST (SGOT) 14 U/L (5-34); Albumin 3.6 g/dL (3.4-4.8); Alkaline Phosphatase 39 U/L (40-110); Anion Gap 13 mmol/L (10-20); BUN (Urea Nitrogen) 33 mg/dL (8.4-25.7); Bilirubin, Total 0.6 mg/dL (0.2-1.2); Calc. Creatinine Clearance 27 mL/min (70-130); Calcium 9.1 mg/dL (7.8-10.44); Carbon Dioxide 24 mmol/L (23-31); Chloride 106 mmol/L (98-107); Estimated GFR 31; Globulin 2.7 g/dL (2.4-3.5); Glucose 114 mg/dL (83-110); Hemoglobin 13.6 g/dL (14.0-18.0); Mean Corpuscular HGB CONC 33.8 g/dL (32.0-36.0); Mean Corpuscular Hemoglobin 31.7 pg (27.0-31.0); Mean Corpuscular Volume 93.9 fl (78.0-98.0); Mean Platelet Volume 7.7 fL (7.4-10.4); Platelet Count 157 10x3/uL (130-400); Potassium 3.9 mmol/L (3.5-5.1); Protein, Total 6.3 g/dL (5.8-8.1); RBC Distribution Width 12.8 % (11.5-14.5); Red Blood Cell (RBC) Count 4.29 mill/uL (4.70-6.10); Sodium 139 mmol/L (136-145); White Blood Cell (WBC) Count 9.4 10x3/uL (4.8-10.8)
[2022-12-10] MEDS: hydrALAZINE 25 MG TAB PO SCH ×2 (09:10→15:07)
[2022-12-10] MEDS: Aspirin Chewable 81 MG TAB PO SCH (09:12)
[2022-12-10] MEDS: Carvedilol 6.25 MG TAB PO SCH (09:12)
[2022-12-10 19:24] VITALS: BP 162/78; TEMP 98.8
== END 2022-12-10 19:00 | disposition home or self-care (01) | DRG 194 ==
LOC: BURERS 10:55 → BURMED 11:45
PROVIDERS: ADMIT Family Medicine; ATTEND Family Medicine
DX: J18.9 Pneumonia, unspecified organism (principal); I50.32 Chronic diastolic (congestive) heart failure; J44.0 Chronic obstructive pulmonary disease with (acute) lower respiratory infection; Z20.822 Contact with and (suspected) exposure to COVID-19; I11.0 Hypertensive heart disease with heart failure; E78.5 Hyperlipidemia, unspecified; K21.9 Gastro-esophageal reflux disease without esophagitis; Z98.49 Cataract extraction status, unspecified eye; Z79.82 Long term (current) use of aspirin; Z79.899 Other long term (current) drug therapy; Z87.891 Personal history of nicotine dependence
CPT/HCPCS: 36415; 71045; 71046; 80053; 82550; 83605; 83735; 83880; 84484; 85025; 86140; 87040; 93005; 94640; 94760; 96365; 96367; 96375; J0692; J1956; J2930; J3490; J7611; J7620

== ENCOUNTER 2022-12-12 20:10 | Emergency (ER) | payer MEDICARE ==
[2022-12-12] MEDS ORDERED: Ondansetron PF 4 MG/2 ML Vial ONE (20:46)
[2022-12-12 21:22] LABS: #Lymphocytes 0.8 thou/uL (1.20-3.40); #Monocytes 0.5 thou/uL (0.11-0.59); #Neutrophils 14.5 thou/uL (1.40-6.50); %Basophils 0.2 % (0.0-1.0); %Neutrophils 91.8 % (42.0-75.0); Hemoglobin 15.7 g/dL (14.0-18.0); Mean Corpuscular HGB CONC 32.4 g/dL (32.0-36.0); Mean Corpuscular Hemoglobin 31.1 pg (27.0-31.0); Mean Corpuscular Volume 95.9 fl (78.0-98.0); Mean Platelet Volume 6.8 fL (7.4-10.4); Platelet Count 219 10x3/uL (130-400); RBC Distribution Width 12.8 % (11.5-14.5); Red Blood Cell (RBC) Count 5.06 mill/uL (4.70-6.10); White Blood Cell (WBC) Count 15.7 10x3/uL (4.8-10.8)
[2022-12-12 21:26] LABS: ALT (SGPT) 16 U/L (8-55); AST (SGOT) 11 U/L (5-34); Albumin 4.2 g/dL (3.4-4.8); Alkaline Phosphatase 51 U/L (40-110); Anion Gap 16 mmol/L (10-20); BUN (Urea Nitrogen) 52 mg/dL (8.4-25.7); Bilirubin, Total 0.8 mg/dL (0.2-1.2); Calc. Creatinine Clearance 0 mL/min (70-130); Calcium 9.4 mg/dL (7.8-10.44); Carbon Dioxide 22 mmol/L (23-31); Chloride 99 mmol/L (98-107); Estimated GFR 35; Glucose 141 mg/dL (83-110); Lipase 11 U/L (8-78); Potassium 4.1 mmol/L (3.5-5.1); Protein, Total 7.2 g/dL (5.8-8.1); Sodium 133 mmol/L (136-145)
[2022-12-12 21:36] LABS: Bilirubin Negative (Negative); Blood, Urine Negative (Negative); Clarity Clear (Clear); Glucose, Urine (Dipstick) Negative (Negative); Ketone, Urine Negative (Negative); Leukocyte Trace (Negative); Nitrite Negative (Negative); Protein, Urine (Dipstick) 100 mg/dL (Neg-Trace); Specific Gravity, Urine 1.015 (1.005-1.030); Urobilinogen 0.2 mg/dL (Less than 2)
[2022-12-12 21:45] LABS: Bacteria/HPF Rare-Few HPF (None Seen); Mucous/LPF 2+ LPF (<2+); RBC/HPF None Seen HPF (0-3); Squamous Epithelial 0-3 HPF (0-3); WBC/HPF 0-3 HPF (0-3)
== END 2022-12-12 22:00 | disposition home or self-care (01) ==
LOC: BURERS 20:10
DX: K29.80 Duodenitis without bleeding (principal); J18.9 Pneumonia, unspecified organism; I11.0 Hypertensive heart disease with heart failure; I50.9 Heart failure, unspecified; E78.5 Hyperlipidemia, unspecified; J44.9 Chronic obstructive pulmonary disease, unspecified; F17.210 Nicotine dependence, cigarettes, uncomplicated; Z79.899 Other long term (current) drug therapy
CPT/HCPCS: 74176; 80053; 81003; 81015; 83690; 84484; 85025; 93005; 94760; 96374; J2405

== ENCOUNTER 2022-12-26 09:55 | Emergency (ER) | payer MEDICARE ==
[2022-12-26 10:29] LABS: #Lymphocytes 0.5 thou/uL (1.20-3.40); #Monocytes 0.3 thou/uL (0.11-0.59); #Neutrophils 9.7 thou/uL (1.40-6.50); %Basophils 0.3 % (0.0-1.0); %Lymphocytes 4.6 % (21.0-51.0); %Monocytes 2.8 % (0.0-10.0); %Neutrophils 92.3 % (42.0-75.0); Hemoglobin 7.5 g/dL (14.0-18.0); Mean Corpuscular HGB CONC 33.3 g/dL (32.0-36.0); Mean Corpuscular Hemoglobin 32.3 pg (27.0-31.0); Mean Corpuscular Volume 97.1 fl (78.0-98.0); Mean Platelet Volume 6.3 fL (7.4-10.4); Platelet Count 287 10x3/uL (130-400); RBC Distribution Width 14.9 % (11.5-14.5); Red Blood Cell (RBC) Count 2.33 mill/uL (4.70-6.10); White Blood Cell (WBC) Count 10.5 10x3/uL (4.8-10.8)
[2022-12-26] MEDS ORDERED: Iopamidol 370 76% 100 ML VIAL ONE (10:35)
[2022-12-26 10:47] LABS: ALT (SGPT) 12 U/L (8-55); AST (SGOT) 17 U/L (5-34); Albumin 3.3 g/dL (3.4-4.8); Alkaline Phosphatase 35 U/L (40-110); Anion Gap 13 mmol/L (10-20); BUN (Urea Nitrogen) 32 mg/dL (8.4-25.7); Bilirubin, Total 0.5 mg/dL (0.2-1.2); Calc. Creatinine Clearance 0 mL/min (70-130); Calcium 8.7 mg/dL (7.8-10.44); Carbon Dioxide 23 mmol/L (23-31); Chloride 105 mmol/L (98-107); Estimated GFR 43; Glucose 157 mg/dL (83-110); Lipase 20 U/L (8-78); Magnesium 1.9 mg/dL (1.6-2.6); Protein, Total 5.3 g/dL (5.8-8.1); Sodium 137 mmol/L (136-145)
[2022-12-26 13:04] LABS: Bilirubin Negative (Negative); Blood, Urine Negative (Negative); Clarity Clear (Clear); Glucose, Urine (Dipstick) Negative (Negative); Ketone, Urine Negative (Negative); Leukocyte Negative (Negative); Nitrite Negative (Negative); Protein, Urine (Dipstick) Negative (Neg-Trace); Specific Gravity, Urine 1.015 (1.005-1.030); Urobilinogen 0.2 mg/dL (Less than 2)
== END 2022-12-26 15:08 | disposition short-term general hospital (02) ==
LOC: BURERS 09:55
DX: K50.90 Crohn's disease, unspecified, without complications (principal); K80.20 Calculus of gallbladder without cholecystitis without obstruction; D64.9 Anemia, unspecified; N28.9 Disorder of kidney and ureter, unspecified; I11.0 Hypertensive heart disease with heart failure; I50.9 Heart failure, unspecified; J44.9 Chronic obstructive pulmonary disease, unspecified; F17.210 Nicotine dependence, cigarettes, uncomplicated; E78.5 Hyperlipidemia, unspecified; Z79.899 Other long term (current) drug therapy; Z79.82 Long term (current) use of aspirin
CPT/HCPCS: 71275; 74177; 80053; 81003; 83605; 83690; 83735; 84484; 85025; 85379; Q9967